=== PATIENT | female | born 2005 | race Hispanic/Latino ===

== ENCOUNTER → 2023-07-05 | Emergency (ER) | payer BC, SELFPAY ==
[~2023-07-05] MED LIST: KETOROLAC 30 MG/ML INJ ONE; NA CHLORIDE 0.9% 1,000 ML ONE; ONDANSETRON 4 MG/2 ML VIAL ONE
--- OUTSIDE RECORDS SUMMARY | 2023-07-05 22:17 | XMS REPORT | Continuity of Care Document ---
Author Name Unknown Address [address] [place] [address] thconnect Address [address] [place] [address] [address] [place] [address] Care Team Providers Care Paradi Tender Name Role Phone jose Attending Clinician Unavailable jose Admitting Clinician Unavailable Encounters Start Date/Time End Date/Time Encounter Type Admission Type Attending Clinicians Care Facility Care Department Encounter ID Source 2020-02-14 02:46:00 2020-02-14 02:46:00 Outpatient jose LOCO [facility] [id number] [facility]
[2023-07-05 23:24] LABS: Specific Gravity > 1.030 (1.005-1.030)
[2023-07-05 23:28] LABS: Specific Gravity > 1.030 (1.005-1.030); Urine Bacteria <20 /HPF (<20); Urine Bilirubin NEGATIVE (Negative); Urine Blood 3+ (Negative); Urine Clarity Extremely Turbid (Clear); Urine Color Yellow (Yellow); Urine Glucose NEGATIVE (Negative); Urine Mucus 4+ /HPF (None Seen); Urine Protein 2+ (Negative); Urine RBC None Seen /HPF (None Seen); Urine Urobilinogen Normal (Normal); Urine pH 5.5 (5.0-7.0)
[2023-07-06 00:07] LABS: Absolute Lymphocytes (CBC) 2.6 K/uL (0.7-4.9); Hematocrit 35.9 % (36.0-45.0); Lymphocytes % 36.7 % (15.3-44.8); MCV 89.7 fL (80-100); MPV 8.4 fL (7.6-11.3); Platelets 266 thou/uL (152-406)
[2023-07-06 00:16] LABS: Albumin 4.8 g/dL (3.4-5.0); Bilirubin Total 0.5 mg/dL (0.2-1.0); Potassium 3.6 mEq/L (3.5-5.1); Protein, Total 8.2 g/dL (6.4-8.2)
--- NOTE | 2023-07-06 01:31 | ER ---
Nurse's Notes [facility] Name: Leticia Ackerman Age: 17 yrs Sex: Female : 2005 Arrival Date: 07/05/2023 Time: 22:12 Bed 20 Private MD: Diagnosis: Lower abdominal pain, unspecified;Intermittent pelvic pain in female. Presentation: 07/05 22:27 Chief complaint: Patient states: Pt c/o increasing right side abdominal pain over the tl4 past several months. Pt also c/o vaginal discharge, nausea, decreased appetite, unintended weight loss. Coronavirus screen: At this time, the client does not indicate any symptoms associated with coronavirus-19. Ebola Screen: No symptoms or risks identified at this time. Initial Sepsis Screen: Does the patient meet any 2 criteria? No. Patient's initial sepsis screen is negative. Does the patient have a suspected source of infection? No. Patient's initial sepsis screen is negative. Risk Assessment: Do you want to hurt yourself or someone else? Patient reports no desire to harm self or others. Onset of symptoms is unknown. 22:27 Method Of Arrival: Ambulatory tl4 22:27 Acuity: SHERLEY 3 tl4 Triage Assessment: 22:30 General: Appears uncomfortable, Behavior is calm, cooperative. Pain: Complains of pain tl4 in abdomen. EENT: No deficits noted. No signs and/or symptoms were reported regarding the EENT system. Neuro: No deficits noted. Cardiovascular: No deficits noted. Denies chest pain. Respiratory: No deficits noted. Denies cough, shortness of breath. GI: Reports lower abdominal pain, upper abdominal pain, anorexia, diarrhea, nausea. : No deficits noted. No signs and/or symptoms were reported regarding the genitourinary system. Derm: No deficits noted. No signs and/or symptoms reported regarding the dermatologic system. 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 - Social history:: Smoking status: Patient denies any tobacco usage or history of. Screenin:40 [facility] ED Fall Risk Assessment (Adult) History of falling in the last 3 months, cm10 including since admission No falls in past 3 months (0 pts) Confusion or Disorientation No (0 pts) Intoxicated or Sedated No (0 pts) Impaired Gait No (0 pts) Mobility Assist Device Used No (0 pt) Altered Elimination No (0 pt) Score/Fall Risk Level 0 - 2 = Low Risk Oriented to surroundings, Maintained a safe environment, Hourly rounding (assess needs \T\ fall precautionary measures) done. Abuse screen: Denies threats or abuse. Denies injuries from another. Nutritional screening: Had unintentional weight loss of 10 pounds or more. Tuberculosis screening: No symptoms or risk factors identified. Assessment: 23:40 General: Appears in no apparent distress. comfortable, Behavior is calm, cooperative. cm10 Pain: Complains of pain in abdomen. Neuro: No deficits noted. Castillo Agitation-Sedation Scale (RASS): 0 - Alert and Calm Level of Consciousness is awake, alert, obeys commands, Oriented to person, place, time, situation. Cardiovascular: No deficits noted. Heart tones present Capillary refill < 3 seconds Patient's skin is warm and dry. Respiratory: No deficits noted. Airway is patent Respiratory effort is even, unlabored, Respiratory pattern is regular, symmetrical, Breath sounds are clear bilaterally. GI: No deficits noted. Bowel sounds present X 4 quads. Abd is soft X 4 quads Abdomen is tender to palpation in right upper quadrant and left upper quadrant Reports upper abdominal pain, nausea, vomiting. : No deficits noted. Reports vaginal bleeding that is spotty. EENT: No deficits noted. No signs and/or symptoms were reported regarding the EENT system. Derm: No deficits noted. No signs and/or symptoms reported regarding the dermatologic system. Skin is intact, Skin is pink, warm \T\ dry. Musculoskeletal: No deficits noted. No signs and/or symptoms reported regarding the musculoskeletal system. Range of motion: intact in all extremities. 07/06 01:15 Reassessment: No changes from previously documented assessment. Patient and/or family cm10 updated on plan of care and expected duration. Pain level reassessed. Patient is alert, oriented x 3, equal unlabored respirations, skin warm/dry/pink. Patient states feeling better. Patient states symptoms have improved. Vital Signs: 07/05 22:27 BP 137 / 90; Pulse 71; Resp 16; Temp 98.2(O); Pulse Ox 100% on R/A; Weight 52.62 kg; tl4 Height 5 ft. 2 in. ; Pain 8/10; 07/06 01:00 BP 125 / 85; Pulse 82; Resp 16; Pulse Ox 100% on R/A; cm10 01:30 BP 127 / 93; Pulse 74; Resp 16; Pulse Ox 100% on R/A; cm10 07/05 22:27 Body Mass Index 21.22 (52.62 kg, 157.48 cm) - Percentile 44.2 % tl4 07/05 22:27 Pain Scale: Adult tl4 ED Course: 07/05 22:17 Patient arrived in ED. jj6 22:20 Kenyatta Rose FNP-C is PHCP. kb 22:20 Coleman Palma MD is Attending Physician. kb 22:30 Triage completed. tl4 22:31 Arm band placed on right wrist. tl4 23:00 Key Avery, KENTON is Primary Nurse. cm10 23:35 Initial lab(s) drawn, by me, sent to lab. Inserted saline lock: 22 gauge in left cm10 antecubital area, using aseptic technique. Blood collected. 23:37 CBC with Diff Sent. cm10 23:37 CMP Sent. cm10 23:37 Lipase Sent. cm10 23:40 Patient has correct armband on for positive identification. Placed in gown. Bed in low cm10 position. Call light in reach. Side rails up X2. Provided Education on: ER process and procedures. . Pulse ox on. NIBP on. Door closed. Warm blanket given. 07/06 00:[address] via stretcher. cm10 00:53 CT Abd/Pelvis - IV Contrast Only In Process Unspecified. EDMS 01:29 Kayleen Slaughter MD is Referral Physician. sp4 01:51 No provider procedures requiring assistance completed. IV discontinued, intact, cm10 bleeding controlled, No redness/swelling at site. Pressure dressing applied. Administered Medications: 07/05 23:37 Drug: NS 0.9% IV 1000 ml IV at 1 bolus Per protocol; 1000 mL bolus Route: IV; Rate: 1 cm10 bolus; Site: left antecubital; 07/06 00:32 Follow up: Response: No adverse reaction; IV Status: Completed infusion; IV Intake: cm10 1000ml 07/05 23:37 Drug: Ondansetron IVP 4 mg IVP once; over 2 minutes Route: IVP; Site: left antecubital; cm10 07/06 00:32 Follow up: Response: No adverse reaction; Nausea is decreased cm10 07/05 23:40 Drug: TORadol - Ketorolac IVP 15 mg IVP once Route: IVP; Site: left antecubital; cm10 07/06 00:33 Follow up: Response: No adverse reaction; Pain is decreased cm10 Medication: 07/05 23:40 VIS not applicable for this client. cm10 Intake: 07/06 00:32 IV: 1000ml; Total: 1000ml. cm10 Outcome: : Discharge ordered by MD. monterroso 01:51 Discharged to home ambulatory, cm10 01:51 Condition: good 01:51 Discharge instructions given to patient, Instructed on discharge instructions, follow up and referral plans. medication usage, Demonstrated understanding of instructions, follow-up care, medications, Prescriptions given X 3, 01:51 Patient left the ED. cm10 Signatures: Dispatcher [employer] EDMS Kenyatta Rsoe, PREKINDERGARTEN TEACHER-C PREKINDERGARTEN TEACHER-CkEtta Zaldivar jj6 Coleman Palma MD MD sp4 Key Avery RN RN cm10 [place] 4
--- NOTE | 2023-07-06 01:31 | EDPHYS ---
Physician Documentation [facility] Name: Leticia Ackerman Age: 17 yrs Sex: Female : 2005 Arrival Date: 07/05/2023 Time: 22:12 Bed 20 Private MD: ED Physician Coleman Palma HPI: 07/06 00:19 This 17 yrs old Female presents to ER via Ambulatory with complaints of kb Abdominal Pain, Abdominal Cramping, Nausea. 00:19 Patient is a 17-year-old female who presents for abdominal pain, nausea that started kb approximately 2 months ago but has been worse today. States she has had intermittent diarrhea and vomiting over the last 2 to 4 months. Reports pain is diffuse but worse in the right lower quadrant. Denies fever.. 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 - Social history:: Smoking status: Patient denies any tobacco usage or history of. ROS: 07/06 00:19 Constitutional: Negative for fever, chills, and weight loss, kb Abdomen/GI: Positive for abdominal pain, nausea, vomiting, and diarrhea, All other systems are negative, Exam: 00:19 Constitutional: This is a well developed, well nourished patient who is awake, alert, kb and in no acute distress. Head/Face: Normocephalic, atraumatic. ENT: Moist Mucous membranes Cardiovascular: Regular rate Respiratory: Respirations even and unlabored. No increased work of breathing. Talking in full sentences Skin: Warm, dry with normal turgor. Normal color. MS/ Extremity: Pulses equal, no cyanosis. Neurovascular intact. Full, normal range of motion. Neuro: Awake and alert, GCS 15, oriented to person, place, time, and situation. Moves all extremities. Normal gait. 00:19 Abdomen/GI: Inspection: abdomen appears normal, Bowel sounds: normal, Palpation: soft, in all quadrants, moderate abdominal tenderness, in the left lower quadrant, Vital Signs: 07/05 22:27 BP 137 / 90; Pulse 71; Resp 16; Temp 98.2(O); Pulse Ox 100% on R/A; Weight 52.62 kg; tl4 Height 5 ft. 2 in. ; Pain 8/; 07/06 01:00 BP 125 / 85; Pulse 82; Resp 16; Pulse Ox 100% on R/A; cm10 01:30 BP 127 / 93; Pulse 74; Resp 16; Pulse Ox 100% on R/A; cm10 07/05 22:27 Body Mass Index 21.22 (52.62 kg, 157.48 cm) - Percentile 44.2 % tl4 07/05 22:27 Pain Scale: Adult tl4 MDM: 07/05 22:21 Patient medically screened. kb 07/06 00:19 Differential diagnosis: appendicitis, gastritis, gastroesophageal reflux disease, kb non-specific abd pain, urinary tract infection, colitis. Data reviewed: vital signs, nurses notes. 00:43 ED course: Patient care assumed from the PA. 12:43 . sp4 01:03 ED course: FINDINGS: Thoracic: No significant abnormality. Hepatobiliary: No concerning sp4 hepatic lesion identified. The portal veins are patent. The gallbladder is unremarkable. No biliary ductal dilatation. Pancreas: Unremarkable. Spleen: Unremarkable. Gastrointestinal: No evidence of bowel obstruction or perienteric inflammation. The appendix is normal. Small stool burden. Adrenals: No abnormality identified in either adrenal gland. Renal: No concerning parenchymal abnormality in either kidney. No hydronephrosis or urolithiasis. Bladder/Reproductive: Mild circumferential wall thickening of the urinary bladder. Unremarkable CT appearance of the uterus and ovaries. Vascular/Lymphatics: No lymphadenopathy identified by CT size criteria. Abdominal aorta is normal in caliber. Musculoskeletal: No concerning osseous lesion identified. Fluid / peritoneum: No significant free fluid. No free intraperitoneal air identified. IMPRESSION 1. Mild urinary bladder wall thickening, which could be related to cystitis. 2. No additional potential acute abnormality identified. Electronically signed by: Hazel Lai MD 07/06/2023 1. 01:27 Differential diagnosis: abdominal pains RLQ. Data reviewed: radiologic studies, CT sp4 scan. Consideration of Admission/Observation Escalation of care including admission/observation considered. ED course: CT scan today reveals no emergent acute pelvic or abdominal problem. Patient describes episodic abdominal pain that for started roughly 2 years ago and periodically occurs per patient without any particular pattern. Patient reports associated loss of appetite and also some weight loss in the last 2 years about 30 pounds. Patient may have irritable bowel versus endometriosis. Recommend follow-up with RESPIRATORY CARE ASSISTANT for investigation of pelvic organs such as pelvic sonogram on outpatient basis and or laparoscopy for assessment from endometriosis. . 07/05 22:51 Order name: CBC with Diff; Complete Time: 00:19 kb 07/05 22:51 Order name: CMP; Complete Time: 00:19 kb 07/05 22:51 Order name: Lipase; Complete Time: 00:19 kb 07/05 22:51 Order name: Test, Urine; Complete Time: 23:39 kb 07/05 22:51 Order name: Urinalysis w/ reflexes; Complete Time: 23:39 kb 07/05 22:51 Order name: CT Abd/Pelvis - IV Contrast Only kb 07/05 22:51 Order name: IV Saline Lock; Complete Time: 23:37 kb 07/05 22:51 Order name: Labs collected and sent; Complete Time: 23:37 kb Administered Medications: 07/05 23:37 Drug: NS 0.9% IV 1000 ml IV at 1 bolus Per protocol; 1000 mL bolus Route: IV; Rate: 1 cm10 bolus; Site: left antecubital; 07/06 00:32 Follow up: Response: No adverse reaction; IV Status: Completed infusion; IV Intake: cm10 1000ml 07/05 23:37 Drug: Ondansetron IVP 4 mg IVP once; over 2 minutes Route: IVP; Site: left antecubital; cm10 07/06 00:32 Follow up: Response: No adverse reaction; Nausea is decreased cm10 07/05 23:40 Drug: TORadol - Ketorolac IVP 15 mg IVP once Route: IVP; Site: left antecubital; cm10 07/06 00:33 Follow up: Response: No adverse reaction; Pain is decreased cm10 Disposition: 01:27 Co-signature as Attending Physician, Coleman Palma MD I agree with the assessment sp4 and plan of care. I reviewed the patient's care provided by Advanced Practice Provider \T\ agree w/ the diagnosis \T\ care plan. I personally saw the pt \T\ performed a substantive portion of the visit, incldng all aspects of the (History/Exam/Medical Decision Making). Disposition Summary: 07/06/23 01:31 Discharge Ordered Notes: Location: Home sp4 Problem: new sp4 Symptoms: have improved sp4 Condition: Stable sp4 Diagnosis - Lower abdominal pain, unspecified sp4 - Intermittent pelvic pain in female. sp4 Followup: sp4 - With: Kayleen Slaughter MD - When: 10 - 14 days - Reason: Recheck today's complaints Discharge Instructions: - Discharge Summary Sheet sp4 - Abdominal Pain, Adult, [id number] sp4 Forms: - Patient Portal Instructions sp4 Prescriptions: - naproxen 500 mg Oral tablet - take 1 tablet ORAL route every 12 hours PRN pain; 30 tablet; Refills: 0, sp4 Product Selection Permitted - Reglan 10 mg Oral tablet - take 1 tablet ORAL route every 8 hours PRN nausea; 60 tablet; Refills: 0, sp4 Product Selection Permitted - dicyclomine 20 mg Oral tablet - take 1 tablet ORAL route every 8 hours PRN crampy abdominal pain; 30 tablet; sp4 Refills: 0, Product Selection Permitted Signatures: Dispatcher [employer] Kenyatta Carlton, SOLAR ENERGY TECHNICIAN-C SOLAR ENERGY TECHNICIAN-Coleman Bearden MD MD sp4 Key Avery RN RN cm10 [facility]
--- NOTE | 2023-07-06 11:40 | RAD REPORT ---
EXAM DESCRIPTION: CT - Abdomen Pelvis W Contrast - 07/06/2023 7:20 am CLINICAL HISTORY: ABD PAIN. COMPARISON: None. TECHNIQUE: CT of the abdomen and pelvis was performed following intravenous administration of iodina phani contrast. Oral contrast was not administered. Axial, coronal, and sagittal soft tissue window rec onstructions were created and sent to PACS. This exam was performed according to our departmental dose-optimization program, which includes autom ated exposure control, adjustment of the mA and/or kV according to patient size and/or use of iterati ve reconstruction technique. FINDINGS: Thoracic: No significant abnormality. Hepatobiliary: No concerning hepatic lesion identified. The portal veins are patent. The gallbladder is unremarkable. No biliary ductal dilatation. Pancreas: Unremarkable. Spleen: Unremarkable. Gastrointestinal: No evidence of bowel obstruction or perienteric inflammation. The appendix is marielena l. Small stool burden. Adrenals: No abnormality identified in either adrenal gland. Renal: No concerning parenchymal abnormality in either kidney. No hydronephrosis or urolithiasis. Bladder/Reproductive: Mild circumferential wall thickening of the urinary bladder. Unremarkable CT ap pearance of the uterus and ovaries. Vascular/Lymphatics: No lymphadenopathy identified by CT size criteria. Abdominal aorta is normal in caliber. Musculoskeletal: No concerning osseous lesion identified. Fluid / peritoneum: No significant free fluid. No free intraperitoneal air identified. IMPRESSION 1. Mild urinary bladder wall thickening, which could be related to cystitis. 2. No additional potential acute abnormality identified. Electronically signed by: aHzel Lai MD 07/06/2023 12:56 AM CONTRACT OFFICER Due to temporary technical issues with the PACS/Fluency reporting system, reports are being signed by the in house radiologist without review as a courtesy to ensure prompt reporting. The interpreting r adiologist is fully responsible for the content of the report.
[2023-07-06 12:32] VITALS: BP 127/93; TEMP 98.2; O2SAT 100
== END ==
LOC: ER 22:12
DX: R10.31 Right lower quadrant pain (principal); R10.2 Pelvic and perineal pain
CPT/HCPCS: 36415; 74177; 80053; 81001; 81025; 83690; 85025; J2405; J7030; Q9967

== ENCOUNTER 2024-07-06 17:51 | Emergency (ER) | payer SELFPAY ==
--- OUTSIDE RECORDS SUMMARY | 2024-07-06 17:55 | XMS REPORT | Continuity of Care Document ---
Author Name Unknown Address [address] [facility] [place] [address] [facility] thconnect Address [address] [facility] [address] [place] [address] Care Team Providers Care Mail Weigher Name Role Phone Pcp, Patient Does Not Have A Primary Care Physic cristina Giovanni Mejía Attending Clinician TREASURE CUETO Attending Clinician Unavailab le TREASURE CUETO Attending Clinician Unavailab le GC_GCBZW_Kadiyala_S Attending Clinician Unavaila ble sebastian_k Attending Clinician Unavailable TREASURE CUETO Admitting Clinician Unavailab le GC_GCBZW_Kadiyala_S Admitting Clinician Unavaila ble sebastian_k Admitting Clinician Unavailable Payers Payer Name Policy Type Policy Number Effective Date Expirati on Date Source Allergies, Adverse Reactions, Alerts Allergy Name Allergy Type Status Severity Reaction(s) Onset Date Inactive Date Treating Clinician Comments Source NO KNOWN ALLERGIE S Drug Class Active [facility] Social History Social Habit Start Date Stop Date Quantity Comments Source [facility] Tobacco use and exposure 2013-01-14 00:00:00 2013-01-14 00:00:00 Smokeless tobacco non-user [facility] Alcoholic beverage intake 2013-01-14 00:00:00 2013-01-14 00:00:00 Current non-drinker of alcohol (finding) [facility] Tobacco Comment 2013-01-12 00:00:00 2013-01-12 00:00:00 no smoke exposure [facility] Sex assigned at 2005 00:00:00 2005 00:00:00 [facility] Smoking Status Start Date Stop Date Source Never smoked tobacco [facility] Medications Ordered Medication Name Filled Medication Name Start Date Stop Date Current Medication? Ordering Clinician Indication Dosage Frequency Signature (SIG) Comments Components Source iopamidol (ISOVUE 370-500 mL) injection 80 mL 12-21 03:45: 00 12-21 03:45 :00 No [id number] 80mL 80 mL, Intravenou s, ONCE, 1 dose, On Tue12/21/23 at 2245, Routine [facility] dicyclomine 10 mg capsule 12-20 00:00: 00 12-28 04:59 :00 No [id number] 10mg Take 1 capsule by mouth 4 (four) times daily for 7 days. [facility] omeprazole (PRILOSEC) 20 mg capsule 01-12 13:55: 38 Yes 20mg Take 20 mg by mouth daily. [facility] Simethicone (GAS-X EXTRA STRENGTH) 125 mg Cap 01-12 13:55: 38 Yes 1{tbl} Take 1 Tab by mouth 3 (three) times daily. [facility] amoxicillin (AMOXIL) 400 mg/5 mL suspension 01-12 00:00: 00 Yes [id number] 10 ml po bid x 10 days [facility] loratadine (CLARITIN) 5 mg/5 mL solution 01-12 00:00: 00 Yes [id number] 10 ml po q day prn nasal congestion /cough [facility] albuterol (VENTOLIN) 90 mcg/actuati on inhaler 01-12 00:00: 00 Yes [id number] 2{puff} Inhale 2 Puffs every 6 (six) hours as needed for Wheezing or Shortness of Breath. [facility] Immunizations Ordered Immunization Name Filled Immunization Name Date Status Comments Source HEPATITIS A Unknown Completed [facility] HEPATITIS A Unknown Completed [facility] Vital Signs Vital Name Observation Time Observation Value Comments S che Systolic blood pressure 2023-12-22 03:48:00 119 mm[Hg] [facility] Diastolic blood pressure 2023-12-22 03:48:00 67 mm[Hg] [facility] Heart rate 2023-12-22 03:48:00 78 /min [facility] Body temperature 2023-12-22 03:48:00 36.17 Saige [facility] Respiratory rate 2023-12-22 03:48:00 15 /min [facility] Oxygen saturation in Arterial blood by Pulse oximetry 2023-12-22 03:48:00 99 /min [facility] Body height 2023-12-22 01:42:00 157.5 cm [facility] Body weight 2023-12-22 01:42:00 55.339 kg [facility] BMI 2023-12-22 01:42:00 22.31 kg/m2 [facility] Procedures Procedure Date / Time Performed Performing Clinicia n Source CT ABDOMEN PELVIS W CONTRAST 2023-12-22 02:56:38 Treasure Cueto [facility] LIPASE 2023-12-22 02:03:00 Treasure Cueto [facility] COMP. METABOLIC PANEL ([id number]) 2023-12-22 02:03:00 Treasure Cueto [facility] CBC WITH DIFF 2023-12-22 02:03:00 [facility] 2023-12-22 02:03:00 Treasure Cueto [facility] POCT TEST 2023-12-22 02:03:00 Treasure Cueto [facility] Encounters Start Date/Time End Date/Time Encounter Type Admission Type Attending Clinicians Care Facility Care Department Encounter ID Source 2023-12-28 00:00:00 2023-12-28 09:59:25 Letter (Out) Giovanni Macias [facility] [id number] [facility] 2023-12-21 20:48:00 2023-12-21 22:52:00 Emergency X TREASURE CUETO TASHA MADEVIKA ERT [id number] [facility] 2023-12-21 20:48:00 2023-12-21 22:52:00 Emergency Treasure Cueto [facility] [id number] [facility] 2023-07-06 00:00:00 2023-07-06 00:00:00 Outpatient GC_GCBZW_Ka diyala_S [facility] [id number] [facility] 2020-02-14 02:46:00 2020-02-14 02:46:00 Outpatient marlin_lima MMSujatha [facility] [id number] [facility] Results Test Description Test Time Test Comments Results Result Comments Source CT ABDOMEN PELVIS W CONTRAST 2023-12 03:19:[address] ABDOMEN PELVIS W CONTRAST HISTORY: 18 years-old; Female; abdominal pain for one day. COMPARISON: None. TECHNIQUE AND FINDINGS: Contiguous axial imaging from the level of the lungbases through the pubic symphysis was performed after the uncomplicatedadministration of intravenous Omnipaque contrast. Coronal and sagittalreconstructions were obtained. ?Auto mA and/or iterative reconstructionwere used to reduce radiation dose. FINDINGS: LOWER THORAX: The lung bases are clear. No cardiomegaly. LIVER: No focal hepatic lesions. Normal contour. GALLBLADDER AND BILIARY TREE: No intra or extrahepatic biliary ductaldilation. SPLEEN: Unremarkable. PANCREAS: No ductal dilatation or masses ADRENAL GLANDS: No adrenal lesions. KIDNEYS: No hydronephrosis or stones. Simple right renal cyst is seen.Homogeneous and symmetrical enhancement. GI TRACT: No dilation or bowel wall thickening.The appendix is normal.. PERITONEUM AND RETROPERITONEUM: No free air or fluid collection. LYMPH NODES: No intra-abdominal or pelvic lymph node enlargement. PELVIS/BLADDER: Bladder is fully distended with no wall thickening. VESSELS: Unremarkable. BONES AND SOFT TISSUES: No suspicious lytic or sclerotic bony lesions. [facility] Test Item Value Reference Range Interpretation Comme nts LIPASE (test code = 5878450225) 91 U/L 0-220 Lab Interpretation (test cod e = 50598-6) Normal [facility] WITH [id number] 02:15:51* Test Item Value Reference Range Interpretation Comme nts WBC (test code = 6690-2) 8.61 4.30-11.10 RBC (test code = 789-8) 3.61 3.93-5.25 L HGB (test code = 718-7) 10.2 g/dL 11.6-15.0 L HCT (test code = 4544-3) 32.8 % 35.7-45.2 L MCV (test code = 787-2) 90.9 fL 80.6-95.5 MCH (test code = 785-6) 28.3 pg 25.9-32.8 MCHC (test code = 786-4) 31.1 g/dL 31.6-35.1 L RDW-SD (test code = 99133-2) 51.5 fL 39.0-49.9 H RDW-CV (test code = 788-0) 15.4 % 12.0-15.5 PLT (test code = 777-3) 308 166-358 MPV (test code = 88414-6) 10.0 fL 9.5-12.9 NRBC/100 WBC (test code = 7959532095) 0.0 0.0-10.0 NRBC x10^3 (test code = 2957773353) See_Comment [Automated OKDJ.fma ge] The system which generated this result transmitted reference range: 10*3/?L. The reference range was not used to interpret this result as normal/abnormal. GRAN MAT (NEUT) % (test code = 770-8) 77.2 % IMM GRAN % (test code = 9479703873) 0.30 % LYMPH % (test code = 736-9) 16.7 % MONO % (test code = 5905-5) 4.8 % EOS % (test code = 713-8) 0.7 % BASO % (test code = 706-2) 0.3 % GRAN MAT x10^3(ANC) (test code = 1105765836) 6.64 10*3/uL 1.88-7.09 IMM GRAN x10^3 (test code = 2535514038) 0.03 10*3/uL 0.00-0.06 LYMPH x10^3 (test code = 731-0) 1.44 10*3/uL 1.32-3.29 MONO x10^3 (test code = 742-7) 0.41 10*3/uL 0.33-0.92 EOS x10^3 (test code = 711-2) 0.06 10*3/uL 0.03-0.39 BASO x10^3 (test code = 704-7) 0.03 10*3/uL 0.01-0.07 Lab Interpretation (test code = 39917-6) Abnormal [facility] [id number] 02:03:00* Test Item Value Reference Range Interpretation Comme nts POCT PREG (test code = 1605) Negative On board controls acceptable with C Line (test code = 3574) Yes POCT PREG LOT # (test code = 3575) [id number] POCT PREG TEST DATE ( test code = 3576) 10/07/2024 Lab Interpretation (test cod e = 48855-8) Normal [facility]
[2024-07-06 19:26] LABS: Absolute Lymphocytes (CBC) 1.5 K/uL (0.7-4.9); Absolute Monocytes 0.2 K/uL (0.1-1.3); Absolute Neutrophil 4.5 K/uL (1.8-8.0); Basophils % 0.6 % (0-1.3); Hematocrit 37.5 % (36.0-45.0); Hemoglobin 12.3 g/dL (12.0-15.0); Lymphocytes % 24.1 % (15.3-44.8); MCHC 32.7 g/dL (32.0-36.0); MCV 88.8 fL (80-100); MPV 8.9 fL (7.6-11.3); Monocytes % 3.6 % (3.3-12.3); Neutrophils % 71.7 % (41.7-73.7); Platelets 294 thou/uL (152-406); RBC Red Blood Cell Count 4.23 M/uL (3.86-4.86)
[2024-07-06 19:28] LABS: Specific Gravity > 1.030 (1.005-1.030); Sqamous Epithelial <5 /HPF (None Seen); Urine Bacteria <20 /HPF (<20); Urine Bilirubin NEGATIVE (Negative); Urine Blood Trace (Negative); Urine Clarity Extremely Turbid (Clear); Urine Color Yellow (Yellow); Urine Crystals Unidentified Few /HPF (None Seen); Urine Culture Reflex Order NOT NEEDED; Urine Glucose NEGATIVE (Negative); Urine Ketones 3+ (Negative); Urine Micro Reflex YN NO BILL MICROSCOPIC; Urine Mucus 4+ /HPF (None Seen); Urine Nitrite NEGATIVE (Negative); Urine Protein 1+ (Negative); Urine RBC <5 /HPF (None Seen); Urine Urobilinogen Normal (Normal); Urine WBC <5 /HPF (<5); Urine Yeast (Budding) Trace /HPF (None Seen); Urine pH 5.5 (5.0-7.0)
[2024-07-06 19:52] LABS: Thyroid Stimulating Hormone 1.19 uIU/mL (0.358-3.740)
--- NOTE | 2024-07-06 20:43 | RAD REPORT ---
EXAMINATION: CT HEAD WITHOUT CONTRAST CLINICAL INDICATION: Female, 18 years old.near syncope;Dizziness TECHNIQUE: Axial CT images from the skull base to the vertex without intravenous contrast. Coronal an d sagittal reformatted images were created from the data set. One or more of the following dose reduction techniques were used: Automated exposure control, adjustment of the mA and/or kV according to patient size, and/or iterative reconstruction. Unless otherwise specified, incidental findings do not require dedicated imaging follow-up. [id number]. COMPARISON: No prior exam. FINDINGS: INTRACRANIAL: No acute intracranial hemorrhage. No hydrocephalus. No mass effect or midline shift. No significant white matter disease.Hypoattenuating structure in the left basal ganglia measuring 13 x 12 mm is noted. This most likely represents dilated perivascular spaces. VASCULATURE: No visualized abnormalities in the arteries or dural venous sinuses. SCALP/SKULL: No significant soft tissue or osseous abnormalities. SINUSES: The visualized paranasal sinuses and mastoid air cells are predominantly clear. IMPRESSION: No acute intracranial abnormality. Left basal ganglia hypoattenuating structures most consistent with dilated perivascular spaces however in the absence of any prior imaging, confirmation with MRI with and without contrast is suggested. This need not be emergent unless clinically indicated.
[2024-07-06] MEDS ORDERED: NA CHLORIDE 0.9% 1,000 ML ONE (21:03)
--- NOTE | 2024-07-06 21:56 | ER ---
Nurse's Notes [facility] Name: Leticia Ackerman Age: 18 yrs Sex: Female : 2005 Arrival Date: 07/06/2024 Time: 17:51 Bed 13 Private MD: Diagnosis: Other malaise and fatigue;Intermittent migraines Presentation: 07/06 18:09 Chief complaint: Patient states: Migraine GREEN, nausea, blurred vision, near syncope ll1 episodes for 1-2 months. Coronavirus screen: Client denies travel out of the [place] in the last 14 days. fatigue, nausea, Client presents with at least one sign or symptom that may indicate coronavirus-19. Standard/surgical mask placed on the client. Ebola Screen: Patient denies travel to an Ebola-affected area in the 21 days before illness onset. Initial Sepsis Screen: Does the patient meet any 2 criteria? No. Patient's initial sepsis screen is negative. Does the patient have a suspected source of infection? No. Patient's initial sepsis screen is negative. Risk Assessment: Do you want to hurt yourself or someone else? Patient reports no desire to harm self or others. Onset of symptoms was May 05, 2024. 18:09 Method Of Arrival: Ambulatory ll1 18:09 Acuity: SHERLEY 3 ll1 Triage Assessment: 18:13 General: Appears in no apparent distress. Behavior is calm, cooperative, appropriate ll1 for age. Pain: Complains of pain in head Quality of pain is described as aching. Neuro: Reports blurred vision dizziness, headache a syncopal episode weakness. Historical: - Allergies: 18:10 No Known Allergies; ll1 - Home Meds: 18:10 iron pills [Active]; ll1 - PMHx: 18:10 Migraine; ll1 - PSHx: 18:10 None; ll1 - Immunization history:: Adult Immunizations up to date. - Infectious Disease History:: Denies. - Social history:: Smoking status: Reported history of juuling and/or vaping. Patient denies any tobacco usage or history of. Screenin:30 [facility] ED Fall Risk Assessment (Adult) History of falling in the last 3 months, dd2 including since admission No falls in past 3 months (0 pts) Confusion or Disorientation No (0 pts) Intoxicated or Sedated No (0 pts) Impaired Gait No (0 pts) Mobility Assist Device Used No (0 pt) Altered Elimination No (0 pt) Score/Fall Risk Level 0 - 2 = Low Risk Oriented to surroundings, Maintained a safe environment, Educated pt \T\ family on fall prevention, incl call for assistance when getting out of bed, Assessed \T\ reinforced patient's understanding of fall precautions, Hourly rounding (assess needs \T\ fall precautionary measures) done. Abuse screen: Denies threats or abuse. Nutritional screening: No deficits noted. Tuberculosis screening: No symptoms or risk factors identified. Assessment: 21:30 General: Appears in no apparent distress. uncomfortable, Behavior is calm, cooperative, dd2 appropriate for age. Pain: Complains of pain in HEAD Pain does not radiate. Pain currently is 3 out of 10 on a pain scale. Quality of pain is described as pressure, Pain began 1-2 MONTHS. Neuro: Castillo Agitation-Sedation Scale (RASS): 0 - Alert and Calm Level of Consciousness is awake, alert, obeys commands, Oriented to person, place, time, situation, Appropriate for age [facility] are equal bilaterally Moves all extremities. Gait is steady, Speech is normal, Facial symmetry appears normal, Pupils are PERRLA, Pupil Size: 3 Intact Reports blurred vision in right eye and left eye headache in entire photophobia. Cardiovascular: No deficits noted. Patient's skin is warm and dry. Respiratory: No deficits noted. Airway is patent Respiratory effort is even, unlabored, Respiratory pattern is regular, symmetrical. GI: No deficits noted. No signs and/or symptoms were reported involving the gastrointestinal system. Abdomen is flat, non-distended, Abd is soft and non tender X 4 quads. : No deficits noted. No signs and/or symptoms were reported regarding the genitourinary system. EENT: No deficits noted. No signs and/or symptoms were reported regarding the EENT system. Derm: No deficits noted. No signs and/or symptoms reported regarding the dermatologic system. Musculoskeletal: No deficits noted. No signs and/or symptoms reported regarding the musculoskeletal system. Circulation, motion, and sensation intact. Range of motion: intact in all extremities. Vital Signs: 18:12 BP 124 / 91; Pulse 63; Resp 17; Temp 98.2; Pulse Ox 100% ; Weight 55.79 kg; Height 5 ll1 ft. 2 in. ; Pain 5/10; 22:51 BP 114 / 76; Pulse 68; Resp 15; Temp 98; Pulse Ox 100% ; dd2 18:12 Body Mass Index 22.50 (55.79 kg, 157.48 cm) ll1 18:12 Pain Scale: Adult ll1 Basim Coma Score: 21:30 Eye Response: spontaneous(4). Motor Response: obeys commands(6). Verbal Response: dd2 oriented(5). Total: 15. ED Course: 17:53 Patient arrived in ED. ra3 17:54 Daliy Garduno PA-C is PHCP. sb4 17:54 Cherelle Helton MD is Attending Physician. sb4 18:00 Arm band placed on. ll1 18:10 Triage completed. ll1 19:12 Inserted saline lock: 20 gauge in right antecubital area, using aseptic technique. mm11 Blood collected. Flushed with 10 mL NS. 19:13 TSH Sent. mm11 19:13 BMP Sent. mm11 19:13 CBC with Diff Sent. mm11 19:13 UAM Sent. mm11 19:13 Test, Urine Sent. mm11 20:24 Head Brain Wo Cont CT In Process Unspecified. EDMS 20:42 YOKO MANNING, RN is Primary Nurse. dd2 21:30 Patient has correct armband on for positive identification. Bed in low position. Call dd2 light in reach. Side rails up X 1. Provided Education on: CALL LIGHT, LABS/RADIOLOGY. Client placed on continuous cardiac and pulse oximetry monitoring. NIBP monitoring applied. Door closed. Noise minimized. Warm blanket given. Pillow given. Verbal reassurance given. 21:30 No provider procedures requiring assistance completed. Patient maintains SpO2 dd2 saturation greater than 95% on room air. 21:55 Elisa Adkins DO is Referral Physician. sb4 22:51 IV discontinued, intact, bleeding controlled, No redness/swelling at site. Pressure dd2 dressing applied. Administered Medications: 21:09 Drug: NS 0.9% IV 1000 ml IV at 1 bolus Per protocol; to be given as a bolus over 60 dd2 minutes Route: IV; Rate: 1 bolus; Site: left antecubital; 22:09 Follow up: IV Status: Completed infusion; IV Intake: 1000ml dd2 Medication: 21:30 VIS not applicable for this client. dd2 Intake: 22:09 IV: 1000ml; Total: 1000ml. dd2 Outcome: 21:55 Discharge ordered by . sb4 22:51 Discharged to home ambulatory, dd2 22:51 Condition: stable 22:51 Discharge instructions given to patient, Instructed on discharge instructions, follow up and referral plans. medication usage, Demonstrated understanding of instructions, follow-up care, medications, Prescriptions given X 2, 22:52 Patient left the ED. dd2 Signatures: Dispatcher [employer] Whit Be, RN RN ll1 Daily Garduno, PA-C PA-C sb4 Meka Florian ra3 YOKO MANNING RN RN dd2 scott pollack mm11
--- NOTE | 2024-07-06 21:56 | EDPHYS ---
Physician Documentation [facility] Name: Leticia Ackerman Age: 18 yrs Sex: Female : 2005 Arrival Date: 07/06/2024 Time: 17:51 Bed 13 Private MD: ED Physician Cherelle Helton HPI: 07/06 18:20 This 18 yrs old Female presents to ER via Ambulatory with complaints of sb4 migraines, fatigue. 18:20 Patient reports fatigue and migraines x 2 months. States she gets very exhausted with sb4 minimal exertion. Does report of history of iron deficiency anemia in which she occasionally takes iron supplements. Is unsure of status. States that she had a period last week but it was different than her normal periods. Denies any other chronic medical issues. Historical: - Allergies: 18:10 No Known Allergies; ll1 - Home Meds: 18:10 iron pills [Active]; ll1 - PMHx: 18:10 Migraine; ll1 - PSHx: 18:10 None; ll1 - Immunization history:: Adult Immunizations up to date. - Infectious Disease History:: Denies. - Social history:: Smoking status: Reported history of juuling and/or vaping. Patient denies any tobacco usage or history of. ROS: 18:20 Cardiovascular: Negative for chest pain, palpitations, and edema, Respiratory: Negative sb4 for shortness of breath, cough, wheezing, and pleuritic chest pain, 18:20 Constitutional: Positive for fatigue, 18:20 Abdomen/GI: Positive for nausea, 18:20 Neuro: Positive for headache, near syncope, visual changes, 18:20 All other systems are negative, Exam: 18:20 Head/Face: Normocephalic, atraumatic. Eyes: Extra-ocular motions intact. Periorbital sb4 areas with no swelling, redness, or edema. ENT: Mucous membranes moist. Cardiovascular: Regular rate and rhythm with a normal S1 and S2. Respiratory: No increased work of breathing, no retractions or nasal flaring. Abdomen/GI: Soft, non-tender, no distension. Skin: Warm, dry with normal turgor. Normal color with no rashes, no lesions, and no evidence of cellulitis. MS/ Extremity: Pulses equal, no cyanosis. Neurovascular intact. Full, normal range of motion. Neuro: Awake and alert, GCS 15, oriented to person, place, time, and situation. Motor strength 5/5 in all extremities. Sensory grossly intact. 18:20 Constitutional: The patient appears in no acute distress, alert, awake, pale, Vital Signs: 18:12 BP 124 / 91; Pulse 63; Resp 17; Temp 98.2; Pulse Ox 100% ; Weight 55.79 kg; Height 5 ll1 ft. 2 in. ; Pain 5/10; 22:51 BP 114 / 76; Pulse 68; Resp 15; Temp 98; Pulse Ox 100% ; dd2 18:12 Body Mass Index 22.50 (55.79 kg, 157.48 cm) ll1 18:12 Pain Scale: Adult ll1 Basim Coma Score: 21:30 Eye Response: spontaneous(4). Motor Response: obeys commands(6). Verbal Response: dd2 oriented(5). Total: 15. MDM: 17:57 Medical Screening Exam initiated sb4 20:37 Data reviewed: vital signs, nurses notes, lab test result(s), radiologic studies, and sb4 as a result, I will discharge patient. Counseling: I had a detailed discussion with the patient and/or guardian regarding the historical points, exam findings, and any diagnostic results supporting the discharge/admit diagnosis, lab results, radiology results, the need for outpatient follow up, for definitive care, to return to the emergency department if symptoms worsen or persist or if there are any questions or concerns that arise at home. 07/06 18:14 Order name: Test, Urine; Complete Time: 19:28 sb4 07/06 18:14 Order name: UAM; Complete Time: 19:28 sb4 07/06 18:14 Order name: CBC with Diff; Complete Time: 19:30 sb4 07/06 18:14 Order name: BMP; Complete Time: 19:54 sb4 07/06 18:14 Order name: TSH; Complete Time: 19:54 sb4 07/06 19:55 Order name: Head Brain Wo Cont CT; Complete Time: 20:44 sb4 07/06 18:14 Order name: IV Start; Complete Time: 19:13 sb4 Administered Medications: 21:09 Drug: NS 0.9% IV 1000 ml IV at 1 bolus Per protocol; to be given as a bolus over 60 dd2 minutes Route: IV; Rate: 1 bolus; Site: left antecubital; 22:09 Follow up: IV Status: Completed infusion; IV Intake: 1000ml dd2 Disposition Summary: 07/06/24 21:55 Discharge Ordered Notes: Location: Home sb4 Problem: an ongoing problem sb4 Symptoms: are unchanged sb4 Condition: Stable sb4 Diagnosis - Other malaise and fatigue sb4 - Intermittent migraines sb4 Followup: sb4 - With: Elisa Adkins, DO - When: 1 week - Reason: Recheck today's complaints, Continuance of care, Re-evaluation by your physician Discharge Instructions: - Discharge Summary Sheet sb4 - Fatigue sb4 - Migraine Headache, [id number] sb4 - Managing Depression, Adult sb4 - Managing Anxiety, Adult sb4 Forms: - Patient Portal Instructions sb4 - Leadership Thank You Letter sb4 - Work release form dd2 Prescriptions: - Hydroxyzine HCl 50 mg Oral tablet - take 1 tablet ORAL route At bedtime As needed PRN anxiety or insomnia; 20 sb4 tablet; Refills: 0, Product Selection Permitted - Fluoxetine 20 mg Oral Tablet - take 1 tablet ORAL route once daily in the morning; 30 tablet; Refills: 0, sb4 Product Selection Permitted Signatures: Dispatcher [employer] Whit Be RN RN ll1 Daily Garduno PA-C PA-C sb4 YOKO MANNING RN RN dd2
[2024-07-06 23:21] VITALS: O2SAT 100
[2024-07-06 23:27] VITALS: BP 114/76; TEMP 98
== END 2024-07-06 22:52 | disposition home or self-care (01) ==
LOC: ER 17:51
DX: R53.81 Other malaise (principal); R53.83 Other fatigue; G43.809 Other migraine, not intractable, without status migrainosus
CPT/HCPCS: 36415; 70450; 80048; 81001; 81025; 84443; 85025; 96360; 99284; J7030